=== PATIENT | female | born 1975 | race African-American/Black ===

== ENCOUNTER 2023-08-13 14:22 | Inpatient (IN) | payer OTHER ==
[2023-08-13 15:21] VITALS: BMI 35.2
[2023-08-13] MEDS ORDERED: BENZONATATE 200 MG CAPSULE PO PRN (16:24)
[2023-08-13] MEDS ORDERED: POLYETHYLENE GLYCOL (HEALTHYLAX) 3350 17 GM PACKET PO PRN (16:24)
[2023-08-13] MEDS ORDERED: IBUPROFEN 600 MG TABLET (FP) PO PRN (16:24)
[2023-08-13] MEDS ORDERED: MAGNESIUM HYDROX 2400MG/30ML ORAL SUSPENSION 30 ML CUP PO PRN (16:24)
[2023-08-13] MEDS ORDERED: LOPERAMIDE HCL 2 MG CAPSULE PO PRN (16:24)
[2023-08-13] MEDS ORDERED: IBUPROFEN 400 MG TABLET (FP) PO PRN (16:24)
[2023-08-13] MEDS ORDERED: hydrOXYzine PAMOATE 25 MG CAPSULE (FP) PO PRN (16:24)
[2023-08-13] MEDS ORDERED: BISMUTH SUBSALICYLATE 524 MG/30 ML PO PRN (16:24)
[2023-08-13] MEDS ORDERED: NALOXONE HCL 0.4 MG/ML VIAL IM PRN (16:24)
[2023-08-13] MEDS ORDERED: guaiFENesin 600 MG TABLET.ER (FP) PO PRN (16:24)
[2023-08-13] MEDS ORDERED: METHOCARBAMOL 500 MG TABLET PO PRN (16:24)
[2023-08-13] MEDS ORDERED: ACETAMINOPHEN 325 MG TABLET (FP) PO PRN (16:24)
[2023-08-13] MEDS ORDERED: ONDANSETRON *ODT* 4 MG TABLET SL PRN (16:24)
[2023-08-13] MEDS ORDERED: BENZOCAINE/MENTHOL (CHLORASEPTIC ) LOZENGE MM PRN (16:24)
[2023-08-13] MEDS ORDERED: DICYCLOMINE HCL 10 MG CAPSULE PO PRN (16:24)
[2023-08-13] MEDS ORDERED: NALOXONE HCL (KLOXXADO) 8 MG SPRAY NS PRN (16:24)
[2023-08-13] MEDS: INSULIN ASPART SLIDING SCALE (NOVOLOG) 1 VIAL SQ SCH (19:33)
[2023-08-13] MEDS ORDERED: INSULIN (NOVOLOG) ASPART 100 UNITS/ML 10ML VIAL ONE (19:36)
[2023-08-13] MEDS: chlordiazePOXIDE HCL 25 MG CAPSULE PO PRN (19:40)
[2023-08-13] MEDS: PRENATAL VITAMINS W/ FOLIC ACID TABLET (FP) PO SCH (19:42)
[2023-08-13] MEDS ORDERED: MICONAZOLE NITRATE 100 MG SUPP SUPP.VAG PV SCH (22:00)
[2023-08-13] MEDS: chlordiazePOXIDE HCL 25 MG CAPSULE PO SCH (22:22)
[2023-08-13] MEDS: MELATONIN 5 MG TABLETS PO SCH (22:22)
[2023-08-13] MEDS: THIAMINE 100 MG TABLET PO SCH (22:22)
[2023-08-13] MEDS: MICONAZOLE NITRATE 200 MG VAGINAL SUPPOSITORY PV SCH (23:09)
[2023-08-13] MEDS: MAG HYDROX/AL HYDROX/SIMETH 30 ML UNIT-DOSE CUP PO PRN (23:20)
[2023-08-14] MEDS ORDERED: MICONAZOLE NITRATE 2% VAGINAL CREAM 45 GM TUBE VG PRN (03:50)
[2023-08-14] MEDS ORDERED: INSULIN (NOVOLOG) ASPART 100 UNITS/ML 10ML VIAL ONE ×2 (06:07→11:45)
[2023-08-14 09:50] VITALS: BP 112/80; PULSE 81; RESP 16; TEMP 97.7
[2023-08-14] MEDS: NICOTINE 14 MG/24 HOURS TOPICAL PATCH TD SCH (10:19)
[2023-08-14] MEDS ORDERED: BACLOFEN 10 MG TABLET (FP) PO SCH ×2 (10:38→22:00)
[2023-08-14] MEDS: NYSTATIN/TRIAMCINOLONE TOPICAL CREAM 15 GM TUBE TP PRN (10:49)
[2023-08-14] MEDS ORDERED: ALBUTEROL SO4 HFA INHALER IH PRN (10:58)
[2023-08-14] MEDS ORDERED: CELECOXIB 200 MG CAPSULE PO SCH ×2 (11:00)
[2023-08-14] MEDS: CELECOXIB 100 MG CAPSULE PO SCH (11:24)
[2023-08-14] MEDS ORDERED: MICONAZOLE NITRATE 200 MG VAGINAL SUPPOSITORY PV PRN (11:32)
[2023-08-14 11:54] LABS: CHLORIDE 107 mmol/L (98-107); HEMATOCRIT 36.8 % (32.4-45.2); HEMOGLOBIN 12.4 GM/dL (10.7-15.3); MCH 33.2 pg (25.7-33.7); MCHC 33.6 g/dl (32.0-36.0); MEAN CELL VOLUME 98.7 fl (80-96); MEAN PLT VOLUME 7.5 fl (7.5-11.1); PLATELET COUNT 290 10^3/uL (134-434); POTASSIUM 4.4 mmol/L (3.5-5.1); RBC 3.73 M/mm3 (3.60-5.2); RDW 13.6 % (11.6-15.6); SODIUM 138 mmol/L (136-145)
[2023-08-14] MEDS: BACLOFEN 10 MG TABLET (FP) PO SCH (11:56)
[2023-08-14 12:05] LABS: ANION GAP 2 mmol/L (4-13); CALCIUM 8.8 mg/dL (8.5-10.1); CO2 29 mmol/L (21-32); GLUCOSE,RANDOM 228 mg/dL (74-106)
[2023-08-14 12:06] LABS: ALBUMIN 2.8 g/dl (3.4-5.0); BLOOD UREA NITROGEN 8.6 mg/dL (7-18)
[2023-08-14 12:08] LABS: SGOT/AST 10 U/L (15-37); SGPT/ALT 16 U/L (13-61)
[2023-08-14 12:09] LABS: CREATININE 0.6 mg/dL (0.55-1.3)
[2023-08-14 12:10] LABS: BILIRUBIN,TOTAL 0.4 mg/dL (0.2-1); TOT PROT 5.7 g/dl (6.4-8.2)
[2023-08-14 12:11] LABS: ALK PHOS 95 U/L (45-117)
[2023-08-15] MEDS ORDERED: chlordiazePOXIDE HCL 25 MG CAPSULE PO SCH (05:00)
[2023-08-15] MEDS ORDERED: LIRAGLUTIDE 0.6 MG/0.1 ML PEN.INJCTR SQ SCH (07:00)
[2023-08-16] MEDS ORDERED: chlordiazePOXIDE HCL 10 MG CAPSULE PO PRN
[2023-08-16] MEDS ORDERED: chlordiazePOXIDE HCL 10 MG CAPSULE PO SCH (05:00)
[2023-08-17] MEDS ORDERED: chlordiazePOXIDE HCL 10 MG CAPSULE PO SCH (05:00)
[2023-08-18] MEDS ORDERED: chlordiazePOXIDE HCL 10 MG CAPSULE PO ONE (05:00)
== END 2023-08-14 12:35 | disposition left against medical advice (07) | DRG 770 ==
LOC: YASAS 14:22 → Y6N 17:43
PROVIDERS: ADMIT Allergy & Immunology; ATTEND Surgery
PROC: HZ2ZZZZ Detoxification Services for Substance Abuse Treatment (ICD-10-PCS; principal; 2023-08-13)
DX: F10.230 Alcohol dependence with withdrawal, uncomplicated (principal); F14.20 Cocaine dependence, uncomplicated; F12.20 Cannabis dependence, uncomplicated; F17.210 Nicotine dependence, cigarettes, uncomplicated; F31.9 Bipolar disorder, unspecified; F43.10 Post-traumatic stress disorder, unspecified; E11.42 Type 2 diabetes mellitus with diabetic polyneuropathy; E11.319 Type 2 diabetes mellitus with unspecified diabetic retinopathy without macular edema; Z79.85 Long-term (current) use of injectable non-insulin antidiabetic drugs; Z79.4 Long term (current) use of insulin; B37.31 Acute candidiasis of vulva and vagina; M25.50 Pain in unspecified joint; M79.18 Myalgia, other site; Z59.00 Homelessness unspecified; F91.8 Other conduct disorders; Z91.199 Patient's noncompliance with other medical treatment and regimen due to unspecified reason
CPT/HCPCS: 36415; 80053; 80305; 80307; 81025; 82140; 82962; 83036; 85027; 86780; J0475